=== PATIENT | female | born 1950 | race Caucasian/White ===

== ENCOUNTER → 2022-04-02 | Outpatient (CLI) | payer MEDICARE, OTHER ==
[~2022-04-02] MED LIST: AMBIEN10 MG PO; ANTIVERT 25MG T25 MG PO; ARICEPT10 MG PO; ASPIR-TRIN325 MG PO; BENTYL10 MG PO; CELEBREX200 MG PO; COZAAR100 MG PO; D3-20002000 UNIT PO; HYDRALAZINE HCL10 MG PO; IMDUR ER TAB 6060 MG PO; LIPITOR TAB 2020 MG PO; MYSOLINE TAB 5050 MG PO; NAPROSYN500 MG PO; NEURONTIN 400400 MG PO; PEPCID20 MG PO; POTASSIUM CHLO20 ME1 PO; VITAMIN D-32000 UNIT PO
== END ==
LOC: LAB 13:05
DX: I12.9 Hypertensive chronic kidney disease with stage 1 through stage 4 chronic kidney disease, or unspecified chronic kidney disease (principal); N18.30 Chronic kidney disease, stage 3 unspecified
CPT/HCPCS: 36415; 82565; 84520

== ENCOUNTER → 2022-04-06 | Outpatient (CLI) | payer MEDICARE, OTHER | LOC: CT 04-02 12:00 | DX: R06.02 Shortness of breath (principal) | CPT/HCPCS: 71275; Q9967 ==